=== PATIENT | female | born 1965 | race Caucasian/White ===

== ENCOUNTER 2024-04-07 17:52 | Emergency (ER) | payer MEDICAID ==
[~2024-04-07] VITALS: Ht 167.6 cm; Wt 80.0 kg
[2024-04-07 18:22] VITALS: TEMP 98.1; O2SAT 100
[2024-04-07] MEDS: KETOROLAC 30MG/ML VIAL IM ONE (19:34)
[2024-04-07] MEDS ORDERED: IBUP-2029 MT (20:35)
[2024-04-07] MEDS ORDERED: LIDO1ADH7 TP (20:35)
[2024-04-07] MEDS ORDERED: CYCL7.5T25 MT (20:35)
[2024-04-07] MEDS ORDERED: IBUP-2030 MT (21:18)
[2024-04-07 21:21] VITALS: BP 100/60; PULSE 70; RESP 15
== END 2024-04-07 22:00 | disposition home or self-care (01) ==
LOC: ER 17:52
DX: G89.29 Other chronic pain (principal); M54.50 Low back pain, unspecified
CPT/HCPCS: 96372; 99283; J1885